=== PATIENT | female | born 1980 | race African-American/Black ===

== ENCOUNTER 2016-12-25 14:19 | Emergency (ER) | payer BC, MEDICAID ==
[~2016-12-25] VITALS: Ht 175.3 cm; Wt 117.9 kg
[~2016-12-25 14:19] MED LIST: PREN-129
[2016-12-25 14:47] VITALS: BP 111/74
[2016-12-25] MEDS ORDERED: cefTRIAXone SOD 1,000 MG VL IM ONE (15:30)
[2016-12-25] MEDS ORDERED: ACETAMINOPHEN 500 MG TAB PO ONE (15:30)
== END 2016-12-25 16:20 | disposition home or self-care (01) ==
LOC: ER 14:31
DX: O26.891 Other specified pregnancy related conditions, first trimester (principal); J01.90 Acute sinusitis, unspecified; J06.9 Acute upper respiratory infection, unspecified; O99.331 Smoking (tobacco) complicating pregnancy, first trimester; F17.210 Nicotine dependence, cigarettes, uncomplicated; Z90.49 Acquired absence of other specified parts of digestive tract; Z3A.09 9 weeks gestation of pregnancy
CPT/HCPCS: 96372; 99283; J0696

== ENCOUNTER → 2016-12-27 | Outpatient (CLI) | payer BC, MEDICAID ==
[2016-12-27 11:12] LABS: Basophils # (auto) 0 uL; Basophils % (auto) 0.4 % (0.0-2.0); Eosinophils # (auto) 0.2 uL; Eosinophils % (auto) 4.1 % (0.0-7.0); Hematocrit 41.2 % (36.0-46.0); Hemoglobin 13.2 g/dL (12.2-16.2); Lymphocytes # (auto) 1.5 uL; Lymphocytes % (auto) 25.3 % (10.0-50.0); Mean Corpuscular Hemoglobin 27.8 pg (28.0-32.0); Mean Corpuscular Hgb Conc. 32.1 g/dL (32.0-36.0); Mean Corpuscular Volume 86.8 fL (80.0-100.0); Mean Platelet Volume 7.7 fL (7.4-10.4); Monocytes # (auto) 0.4 uL; Monocytes % (auto) 7.2 % (0.0-12.0); Neutrophils # (auto) 3.7 uL; Platelet Count (auto) 384 10^3/uL (140-450); Red Cell Distribution Width 14.7 % (11.6-16.0); White Blood Cell 5.8 10^3/uL (4.4-10.8)
== END | disposition home or self-care (01) ==
LOC: LAB 10:15
PROVIDERS: ATTEND Specialist
DX: Z34.80 Encounter for supervision of other normal pregnancy, unspecified trimester (principal); Z31.81 Encounter for male factor infertility in female patient; Z13.0 Encounter for screening for diseases of the blood and blood-forming organs and certain disorders involving the immune mechanism
CPT/HCPCS: 36415; 82951; 83021; 83036; 85025; 85660; 86703; 86762; 86850; 86900; 86901; 87086; 87340

== ENCOUNTER 2016-12-29 05:01 | Emergency (ER) | payer BC, MEDICAID ==
[~2016-12-29] VITALS: Ht 175.3 cm; Wt 117.9 kg
[2016-12-29 06:11] LABS: Urine RBC None Seen /hpf (0 - 4)
[2016-12-29 06:20] LABS: Urine Bilirubin Negative (Negative); Urine Blood Negative /uL (Negative); Urine Color Yellow (Yellow); Urine Glucose Normal (Normal); Urine Ketone Negative (Negative); Urine Mucus FEW (None Seen); Urine Nitrite Negative (Negative); Urine Squamous Epithelial Cell FEW /hpf (<5); Urine Urobilinogen Normal (Negative); Urine pH 7.5 (5.0-8.0)
[2016-12-29 06:30] LABS: Basophils # (auto) 0 uL; Basophils % (auto) 0.6 % (0.0-2.0); Eosinophils # (auto) 0.3 uL; Eosinophils % (auto) 4.6 % (0.0-7.0); Hematocrit 36.7 % (36.0-46.0); Hemoglobin 12.1 g/dL (12.2-16.2); Lymphocytes # (auto) 1.8 uL; Lymphocytes % (auto) 25.6 % (10.0-50.0); Mean Corpuscular Hemoglobin 27.9 pg (28.0-32.0); Mean Corpuscular Hgb Conc. 32.9 g/dL (32.0-36.0); Mean Corpuscular Volume 84.7 fL (80.0-100.0); Mean Platelet Volume 7.5 fL (7.4-10.4); Monocytes # (auto) 0.5 uL; Monocytes % (auto) 6.7 % (0.0-12.0); Neutrophils # (auto) 4.4 uL; Neutrophils % (auto) 62.5 % (37.0-80.0); Platelet Count (auto) 355 10^3/uL (140-450); Red Cell Distribution Width 14.7 % (11.6-16.0); White Blood Cell 7.1 10^3/uL (4.4-10.8)
[2016-12-29 06:53] LABS: Albumin 3.1 g/dL (3.4-5.0); BUN/Creatinine Ratio 9.1; Calcium 8.1 mg/dL (8.5-10.1); Potassium 3.7 mmol/L (3.5-5.1)
[2016-12-29 06:55] LABS: Bilirubin, Total 0.5 mg/dL (0.2-1.0); Total Protein 7.1 g/dL (6.4-8.2)
[2016-12-29 09:05] VITALS: BP 113/50
== END 2016-12-29 10:48 | disposition home or self-care (01) ==
LOC: ER 05:10
DX: O25.11 Malnutrition in pregnancy, first trimester (principal); O99.331 Smoking (tobacco) complicating pregnancy, first trimester; R10.9 Unspecified abdominal pain; Z3A.09 9 weeks gestation of pregnancy
CPT/HCPCS: 36415; 76801; 80053; 81001; 82150; 83690; 84702; 85025

== ENCOUNTER 2017-03-27 00:20 | Observation (INO) | payer BC, MEDICAID | END 2017-03-27 01:40 | disposition home or self-care (01) | DRG 781 | LOC: LDRP 00:20 | PROVIDERS: ADMIT Obstetrics & Gynecology; ATTEND Obstetrics & Gynecology | DX: O26.892 Other specified pregnancy related conditions, second trimester (principal); R10.9 Unspecified abdominal pain; M54.9 Dorsalgia, unspecified; Z3A.22 22 weeks gestation of pregnancy | CPT/HCPCS: 59025; 81002; G0378 ==

== ENCOUNTER → 2017-05-09 | Outpatient (CLI) | payer BC, MEDICAID ==
[2017-05-09 08:44] LABS: Basophils # (auto) 0 uL; Basophils % (auto) 0.2 % (0.0-2.0); CONDITION Y; Eosinophils # (auto) 0.3 uL; Eosinophils % (auto) 3.6 % (0.0-7.0); Hematocrit 37.1 % (36.0-46.0); Hemoglobin 12.2 g/dL (12.2-16.2); Lymphocytes # (auto) 1.2 uL; Lymphocytes % (auto) 14.8 % (10.0-50.0); Mean Corpuscular Hemoglobin 28.4 pg (28.0-32.0); Mean Corpuscular Hgb Conc. 32.9 g/dL (32.0-36.0); Mean Corpuscular Volume 86.4 fL (80.0-100.0); Mean Platelet Volume 7.4 fL (7.4-10.4); Monocytes # (auto) 0.5 uL; Monocytes % (auto) 6.3 % (0.0-12.0); Neutrophils # (auto) 6.1 uL; Neutrophils % (auto) 75.1 % (37.0-80.0); Platelet Count (auto) 337 10^3/uL (140-450); Red Cell Distribution Width 14.8 % (11.6-16.0); White Blood Cell 8.2 10^3/uL (4.4-10.8)
== END | disposition home or self-care (01) ==
LOC: LAB 08:25
PROVIDERS: ATTEND Specialist
DX: Z34.80 Encounter for supervision of other normal pregnancy, unspecified trimester (principal); O99.810 Abnormal glucose complicating pregnancy
CPT/HCPCS: 36415; 82951; 85025

== ENCOUNTER 2017-05-12 15:15 | Observation (INO) | payer BC, MEDICAID ==
[2017-05-12 16:11] LABS: Urine RBC None Seen /hpf (0 - 4)
[2017-05-12 16:55] LABS: Urine Bilirubin Negative (Negative); Urine Blood Negative /uL (Negative); Urine Color Yellow (Yellow); Urine Glucose Normal (Normal); Urine Ketone Negative (Negative); Urine Mucus FEW (None Seen); Urine Nitrite Negative (Negative); Urine Squamous Epithelial Cell FEW /hpf (<5); Urine pH 6.5 (5.0-8.0)
== END 2017-05-12 17:35 | disposition home or self-care (01) | DRG 781 ==
LOC: LDRP 15:15
PROVIDERS: ADMIT Obstetrics & Gynecology; ATTEND Obstetrics & Gynecology
DX: O26.893 Other specified pregnancy related conditions, third trimester (principal); R10.30 Lower abdominal pain, unspecified; Z3A.29 29 weeks gestation of pregnancy; Z87.891 Personal history of nicotine dependence
CPT/HCPCS: 59025; 76817; 80307; 81001; 81002; G0378

== ENCOUNTER 2017-05-16 11:25 | Observation (INO) | payer BC, MEDICAID | END 2017-05-16 13:30 | disposition home or self-care (01) | DRG 781 | LOC: LDRP 11:25 | PROVIDERS: ADMIT Specialist; ATTEND Specialist | DX: O24.419 Gestational diabetes mellitus in pregnancy, unspecified control (principal); O26.893 Other specified pregnancy related conditions, third trimester; R10.30 Lower abdominal pain, unspecified; Z3A.29 29 weeks gestation of pregnancy | CPT/HCPCS: 59025; 76818; 81002; 82962; G0378 ==

== ENCOUNTER 2017-05-19 13:35 | Observation (INO) | payer BC, MEDICAID | END 2017-05-19 15:00 | disposition home or self-care (01) | DRG 781 | LOC: LDRP 13:35 | PROVIDERS: ADMIT Specialist; ATTEND Specialist | DX: O24.419 Gestational diabetes mellitus in pregnancy, unspecified control (principal); Z3A.30 30 weeks gestation of pregnancy | CPT/HCPCS: 59025; 76818; 81002; G0378 ==

== ENCOUNTER 2017-05-22 16:00 | Observation (INO) | payer BC, MEDICAID | END 2017-05-22 17:25 | disposition home or self-care (01) | DRG 781 | LOC: LDRP 16:00 | PROVIDERS: ADMIT Specialist; ATTEND Specialist | DX: O24.410 Gestational diabetes mellitus in pregnancy, diet controlled (principal); Z3A.30 30 weeks gestation of pregnancy; Z87.891 Personal history of nicotine dependence | CPT/HCPCS: 59025; 76818; 81002; 82962; G0378 ==

== ENCOUNTER 2017-05-26 11:45 | Observation (INO) | payer BC, MEDICAID | END 2017-05-26 13:22 | disposition home or self-care (01) | DRG 781 | LOC: LDRP 11:45 | PROVIDERS: ADMIT Specialist; ATTEND Specialist | DX: O24.419 Gestational diabetes mellitus in pregnancy, unspecified control (principal); Z3A.00 Weeks of gestation of pregnancy not specified | CPT/HCPCS: 59025; 76818; 81002; 82962; G0378 ==

== ENCOUNTER 2017-05-30 09:40 | Observation (INO) | payer BC, MEDICAID | END 2017-05-30 10:45 | disposition home or self-care (01) | DRG 781 | LOC: LDRP 09:40 | PROVIDERS: ADMIT Specialist; ATTEND Specialist | DX: O24.419 Gestational diabetes mellitus in pregnancy, unspecified control (principal); Z3A.31 31 weeks gestation of pregnancy | CPT/HCPCS: 59025; 81002; 82948; 82962; G0378 ==

== ENCOUNTER 2017-06-02 10:10 | Observation (INO) | payer BC, MEDICAID ==
[2017-06-02] MEDS ORDERED: PREN27TA7 OR (10:53)
== END 2017-06-02 11:30 | disposition home or self-care (01) | DRG 781 ==
LOC: LDRP 10:10
PROVIDERS: ADMIT Obstetrics & Gynecology; ATTEND Obstetrics & Gynecology
DX: O24.419 Gestational diabetes mellitus in pregnancy, unspecified control (principal); Z3A.32 32 weeks gestation of pregnancy
CPT/HCPCS: 59025; 76818; 81002; 82948; 82962; G0378

== ENCOUNTER 2017-06-09 14:10 | Observation (INO) | payer BC, MEDICAID ==
[~2017-06-09 14:10] MED LIST changes: +PREN27TA7 OR
== END 2017-06-09 15:38 | disposition home or self-care (01) | DRG 781 ==
LOC: LDRP 14:10
PROVIDERS: ADMIT Specialist; ATTEND Specialist
DX: O24.419 Gestational diabetes mellitus in pregnancy, unspecified control (principal); O26.893 Other specified pregnancy related conditions, third trimester; M54.9 Dorsalgia, unspecified; R10.9 Unspecified abdominal pain; O21.2 Late vomiting of pregnancy; Z3A.33 33 weeks gestation of pregnancy
CPT/HCPCS: 59025; 76818; 81002; 82948; 82962; G0378

== ENCOUNTER 2017-06-11 12:20 | Observation (INO) | payer BC, MEDICAID | END 2017-06-11 14:00 | disposition home or self-care (01) | DRG 778 | LOC: LDRP 12:20 | PROVIDERS: ADMIT Obstetrics & Gynecology; ATTEND Obstetrics & Gynecology | DX: O60.03 Preterm labor without delivery, third trimester (principal); Z3A.33 33 weeks gestation of pregnancy | CPT/HCPCS: 59025; 76818; 81002; 82948; 82962; G0378 ==

== ENCOUNTER 2017-06-14 14:25 | Observation (INO) | payer BC, MEDICAID | END 2017-06-14 15:52 | disposition home or self-care (01) | DRG 781 | LOC: LDRP 14:25 | PROVIDERS: ADMIT Obstetrics & Gynecology; ATTEND Obstetrics & Gynecology | DX: O24.419 Gestational diabetes mellitus in pregnancy, unspecified control (principal); Z3A.34 34 weeks gestation of pregnancy | CPT/HCPCS: 59025; 76818; 81002; 82962; G0378 ==

== ENCOUNTER 2017-06-17 19:26 | Observation (INO) | payer BC, MEDICAID | END 2017-06-17 20:31 | disposition home or self-care (01) | DRG 781 | LOC: LDRP 19:26 | PROVIDERS: ADMIT Specialist; ATTEND Specialist | DX: O24.419 Gestational diabetes mellitus in pregnancy, unspecified control (principal); Z3A.34 34 weeks gestation of pregnancy | CPT/HCPCS: 59025; 76818; 81002; 82962; G0378 ==

== ENCOUNTER 2017-06-21 10:25 | Observation (INO) | payer BC, MEDICAID | END 2017-06-21 12:00 | disposition left against medical advice (07) | DRG 781 | LOC: LDRP 10:25 | PROVIDERS: ADMIT Obstetrics & Gynecology; ATTEND Obstetrics & Gynecology | DX: O24.419 Gestational diabetes mellitus in pregnancy, unspecified control (principal); O26.893 Other specified pregnancy related conditions, third trimester; M54.9 Dorsalgia, unspecified; R10.9 Unspecified abdominal pain; Z3A.00 Weeks of gestation of pregnancy not specified | CPT/HCPCS: 59025; 76818; 81002; 82948; G0378 ==

== ENCOUNTER 2017-06-24 10:05 | Observation (INO) | payer BC, MEDICAID | END 2017-06-24 11:25 | disposition home or self-care (01) | DRG 781 | LOC: LDRP 10:05 | PROVIDERS: ADMIT Obstetrics & Gynecology; ATTEND Obstetrics & Gynecology | DX: O24.419 Gestational diabetes mellitus in pregnancy, unspecified control (principal); Z3A.35 35 weeks gestation of pregnancy | CPT/HCPCS: 59025; 76818; 81002; G0378 ==

== ENCOUNTER 2017-06-27 10:50 | Observation (INO) | payer BC, MEDICAID ==
[~2017-06-27] VITALS: Ht 175.3 cm; Wt 128.4 kg
[2017-06-27] MEDS ORDERED: SODIUM CHLORIDE 0.9% 1,000 ML IV ONE (11:45)
[2017-06-27] MEDS ORDERED: cefTRIAXone 1GM/50ML D5W 50 ML IV ONE (11:45)
[2017-06-27 13:35] LABS: Urine Bilirubin Negative (Negative); Urine Blood Negative /uL (Negative); Urine Color Yellow (Yellow); Urine Glucose Normal (Normal); Urine Ketone Negative (Negative); Urine Mucus FEW (None Seen); Urine Nitrite Negative (Negative); Urine RBC 1 /hpf (0 - 4); Urine Squamous Epithelial Cell MOD /hpf (<5); Urine Urobilinogen Normal (Negative); Urine pH 5.5 (5.0-8.0)
== END 2017-06-27 14:15 | disposition home or self-care (01) | DRG 998 ==
LOC: LDRP 10:50
PROVIDERS: ADMIT Specialist; ATTEND Specialist
DX: O23.40 Unspecified infection of urinary tract in pregnancy, unspecified trimester (principal); Z3A.00 Weeks of gestation of pregnancy not specified
CPT/HCPCS: 59025; 81001; 81002; 82962; 87086; 96361; 96365; G0378; J0696; J7030; 96366

== ENCOUNTER 2017-07-07 11:40 | Inpatient (IN) | payer BC, MEDICAID ==
[~2017-07-07] VITALS: Ht 1 cm; Wt 0.5 kg
[~2017-07-07 11:40] MED LIST changes: -PREN27TA7 OR
[2017-07-07] MEDS ORDERED: PREN-96 PO (12:25)
[2017-07-07 12:47] LABS: Basophils # (auto) 0.1 uL; Basophils % (auto) 0.7 % (0.0-2.0); CONDITION Y; Eosinophils # (auto) 0.2 uL; Eosinophils % (auto) 2.6 % (0.0-7.0); Hematocrit 41.1 % (36.0-46.0); Hemoglobin 13.6 g/dL (12.2-16.2); Lymphocytes # (auto) 1.2 uL; Lymphocytes % (auto) 14.6 % (10.0-50.0); Mean Corpuscular Hemoglobin 28.2 pg (28.0-32.0); Mean Corpuscular Hgb Conc. 33.1 g/dL (32.0-36.0); Mean Corpuscular Volume 85.1 fL (80.0-100.0); Mean Platelet Volume 8.3 fL (7.4-10.4); Monocytes # (auto) 0.6 uL; Monocytes % (auto) 6.7 % (0.0-12.0); Neutrophils # (auto) 6.3 uL; Neutrophils % (auto) 75.4 % (37.0-80.0); Platelet Count (auto) 319 10^3/uL (140-450); Red Cell Distribution Width 15.3 % (11.6-16.0); White Blood Cell 8.4 10^3/uL (4.4-10.8)
[2017-07-07] MEDS ORDERED: NIFEdipine 10 MG CAP ONE (13:52)
[2017-07-07] MEDS ORDERED: NIFEdipine 10 MG CAP PO ONE (14:00)
[2017-07-07 14:25] LABS: Albumin 2.8 g/dL (3.4-5.0); BUN/Creatinine Ratio 12.9; Bilirubin, Total 0.7 mg/dL (0.2-1.0); Calcium 9.1 mg/dL (8.5-10.1); Potassium 3.9 mmol/L (3.5-5.1); Total Protein 7.5 g/dL (6.4-8.2)
[2017-07-07] MEDS ORDERED: SUCCINYLCHOLINE CHLORIDE 20 MG/ML 10ML VIAL IV ONE (15:23)
[2017-07-07] MEDS ORDERED: fentaNYL CITRATE 100 MCG/2 ML VL ONE (15:25)
[2017-07-07] MEDS ORDERED: MIDAZOLAM HCL 1MG/1ML-2 ML VIAL ONE (15:25)
[2017-07-07 15:34] LABS: INR 0.94 (0.9-1.15); Partial Thromboplastin Time 29.8 sec (22.64-33.71); Prothrombin Time 10.2 sec (9.37-12.3)
[2017-07-07] MEDS ORDERED: DEXTROSE 50% SYRINGE 50 ML IV ONE (15:35)
[2017-07-07] MEDS ORDERED: TETRACAINE 1% INJ 2 ML VIAL IJ ONE (15:38)
[2017-07-07] MEDS ORDERED: ceFAZolin 1GM VL ONE (15:55)
[2017-07-07] MEDS ORDERED: PROPOFOL 10 MG/ML 20 ML IV ONE (16:01)
[2017-07-07] MEDS ORDERED: OXYTOCIN 10 UNIT/ML 10ML VIAL ONE (16:01)
[2017-07-07] MEDS ORDERED: KETOROLAC TROMETH 30 MG/ML 1ML VIAL ONE (16:23)
[2017-07-07] MEDS ORDERED: LABETALOL HCL 5 MG/ML 4ML SYRINGE IV PRN (16:45)
[2017-07-07] MEDS ORDERED: MIDAZOLAM HCL 1MG/1ML-2 ML VIAL IV PRN (16:45)
[2017-07-07] MEDS ORDERED: ONDANSETRON HCL 4 MG/2 ML VIAL IV ONE (16:45)
[2017-07-07] MEDS ORDERED: ACCU-CHEK COMFORT CURVE STRIP VI ONE (16:45)
[2017-07-07] MEDS ORDERED: MORPHINE SULF INJ 2 MG/ML SYRINGE 1ML IV PRN (16:45)
[2017-07-07] MEDS ORDERED: KETOROLAC TROMETH 30 MG/ML 1ML VIAL IV ONE (16:45)
[2017-07-07] MEDS ORDERED: ePHEDrine SULFATE 50 MG/ML AMP IV PRN (16:45)
[2017-07-07] MEDS ORDERED: HYDROmorphone HCL 2 MG/ML VL IV PRN ×2 (16:45→17:15)
[2017-07-07] MEDS ORDERED: LACTATED RINGER'S 1,000 ML IV SCH (17:01)
[2017-07-07] MEDS ORDERED: ONDANSETRON HCL 4 MG/2 ML VIAL IV PRN (17:15)
[2017-07-07 19:35] VITALS: BP 103/67
[2017-07-07] MEDS ORDERED: LACTATED RINGERS IV ONE (20:30)
[2017-07-07] MEDS ORDERED: DEXTROSE IV ONE (20:30)
[2017-07-07] MEDS ORDERED: LACT. RINGERS/OXYTOCIN 20UNITS 1,000 ML IV ONE (21:06)
[2017-07-07] MEDS: LACT. RINGERS/OXYTOCIN 20UNITS 1,000 ML IV SCH (21:19)
[2017-07-07 22:00] VITALS: BP 106/70
[2017-07-07] MEDS: ceFAZolin 1GM/50ML D5W 50 ML IV SCH (22:10)
[2017-07-07] MEDS: KETOROLAC TROMETH 30 MG/ML 1ML VIAL IV SCH (22:35)
[2017-07-07 23:00] VITALS: BP 110/67
[2017-07-07 23:41] VITALS: BP 120/74
[2017-07-08 03:00] VITALS: BP 111/73
[2017-07-08] MEDS: KETOROLAC TROMETH 30 MG/ML 1ML VIAL IV SCH (05:06)
[2017-07-08] MEDS: LACT. RINGERS/OXYTOCIN 20UNITS 1,000 ML IV SCH ×2 (05:32→12:00)
[2017-07-08] MEDS: ceFAZolin 1GM/50ML D5W 50 ML IV SCH ×2 (05:34→14:28)
[2017-07-08 06:57] LABS: Basophils # (auto) 0 uL; Basophils % (auto) 0.3 % (0.0-2.0); CONDITION Y; Eosinophils # (auto) 0.2 uL; Eosinophils % (auto) 2.6 % (0.0-7.0); Hematocrit 36.3 % (36.0-46.0); Hemoglobin 11.9 g/dL (12.2-16.2); Lymphocytes % (auto) 12.6 % (10.0-50.0); Mean Corpuscular Hemoglobin 27.7 pg (28.0-32.0); Mean Corpuscular Hgb Conc. 32.7 g/dL (32.0-36.0); Mean Corpuscular Volume 84.6 fL (80.0-100.0); Mean Platelet Volume 8.5 fL (7.4-10.4); Monocytes # (auto) 0.6 uL; Monocytes % (auto) 7.3 % (0.0-12.0); Neutrophils # (auto) 6.1 uL; Neutrophils % (auto) 77.2 % (37.0-80.0); Platelet Count (auto) 308 10^3/uL (140-450); White Blood Cell 7.9 10^3/uL (4.4-10.8)
[2017-07-08 07:24] LABS: Albumin 2.3 g/dL (3.4-5.0); BUN/Creatinine Ratio 9.6; Bilirubin, Total 0.7 mg/dL (0.2-1.0); Calcium 8.6 mg/dL (8.5-10.1); Potassium 3.9 mmol/L (3.5-5.1); Total Protein 6.1 g/dL (6.4-8.2)
[2017-07-08 08:00] VITALS: BP 117/41
[2017-07-08] MEDS ORDERED: HYDROcodone-ACET 5/325MG TAB ONE (10:24)
[2017-07-08] MEDS: HYDROcodone-ACET 5/325MG TAB PO PRN ×2 (10:30→20:15)
[2017-07-08] MEDS: DOCUSATE SOD 100 MG CAP PO SCH ×2 (11:40→22:00)
[2017-07-08 12:00] VITALS: BP 116/68
[2017-07-08] MEDS ORDERED: TETANUS-DIPTH-ACEL PERTUSSIS 0.5ML SYRG IM ONE (12:00)
[2017-07-08 16:00] VITALS: BP 118/70
[2017-07-08] MEDS: IBUPROFEN 800 MG TAB PO PRN (18:30)
[2017-07-08 20:00] VITALS: BP 120/77
[2017-07-08 23:42] VITALS: BP 102/68
[2017-07-09] MEDS: HYDROcodone-ACET 5/325MG TAB PO PRN ×4 (02:15→22:12)
[2017-07-09 03:37] VITALS: BP 115/73
[2017-07-09] MEDS: IBUPROFEN 800 MG TAB PO PRN (05:19)
[2017-07-09 07:40] VITALS: BP 127/77
[2017-07-09] MEDS: DOCUSATE SOD 100 MG CAP PO SCH ×2 (10:30→22:12)
[2017-07-09 12:07] VITALS: BP 121/66
[2017-07-09 16:10] VITALS: BP 97/63
[2017-07-09 20:00] VITALS: BP 115/68
[2017-07-10] VITALS: BP 125/70
[2017-07-10] MEDS: IBUPROFEN 800 MG TAB PO PRN (01:44)
[2017-07-10 03:59] VITALS: BP 120/60
[2017-07-10 08:10] VITALS: BP 116/69
== END 2017-07-10 13:05 | disposition home or self-care (01) | DRG 765 ==
LOC: LDRP 11:40 → OBSVTOIN 11:40 → LDRP 15:54
PROVIDERS: ADMIT Specialist; ATTEND Specialist
PROC: 10D00Z1 Extraction of Products of Conception, Low, Open Approach (ICD-10-PCS; principal; 2017-07-07 15:41)
DX: O34.211 Maternal care for low transverse scar from previous cesarean delivery (principal); K83.1 Obstruction of bile duct; O24.429 Gestational diabetes mellitus in childbirth, unspecified control; O26.62 Liver and biliary tract disorders in childbirth; O69.81X0 Labor and delivery complicated by cord around neck, without compression, not applicable or unspecified; Z37.0 Single live birth; Z83.3 Family history of diabetes mellitus; Z3A.37 37 weeks gestation of pregnancy; O09.523 Supervision of elderly multigravida, third trimester; Z90.49 Acquired absence of other specified parts of digestive tract; Z84.1 Family history of disorders of kidney and ureter
CPT/HCPCS: 36415; 51702; 59025; 76818; 80053; 81002; 82948; 82962; 85025; 85610; 85730; 86592; 86850; 86900; 86901; 90715; 94762; 96361; 96366; J0330; J0690; J1885; J2250; J2590; J2704

== ENCOUNTER → 2017-07-26 | Outpatient (CLI) | payer BC, MEDICAID ==
[~2017-07-26] MED LIST changes: +PREN-96 PO
[2017-07-26 11:05] LABS: Albumin 3.4 g/dL (3.4-5.0); BUN/Creatinine Ratio 9.8; Bilirubin, Total 0.5 mg/dL (0.2-1.0); Calcium 8.5 mg/dL (8.5-10.1); Potassium 3.9 mmol/L (3.5-5.1); Total Protein 7.6 g/dL (6.4-8.2)
== END | disposition home or self-care (01) ==
LOC: LAB 10:23
PROVIDERS: ATTEND Specialist
DX: Z39.2 Encounter for routine postpartum follow-up (principal); L29.9 Pruritus, unspecified
CPT/HCPCS: 36415; 80053

== ENCOUNTER 2021-03-03 13:07 | Emergency (ER) | payer BC, MEDICAID ==
[~2021-03-03] VITALS: Ht 175.3 cm; Wt 108.9 kg
[2021-03-03] MEDS ORDERED: ASPirin 81 mg TAB PO ONE (13:30)
[2021-03-03] MEDS ORDERED: NITROGLYCERIN 0.4 MG SL TAB SL ONE (13:30)
[2021-03-03 14:02] LABS: Basophils # (auto) 0.1 10 ^3/uL (0-0.2); Eosinophils # (auto) 0.3 10 ^3/uL (0-0.8); Eosinophils % (auto) 3.8 % (0.0-7.0); Hematocrit 40.9 % (36.0-46.0); Hemoglobin 13.5 g/dL (12.2-16.2); Lymphocytes # (auto) 1.8 10 ^3/uL (0.4-5.4); Lymphocytes % (auto) 24.4 % (10.0-50.0); Mean Corpuscular Hemoglobin 29.3 pg (28.0-32.0); Mean Corpuscular Volume 88.9 fL (80.0-100.0); Monocytes # (auto) 0.4 10 ^3/uL (0-1.3); Monocytes % (auto) 5.8 % (0.0-12.0); Neutrophils # (auto) 4.7 10 ^3/uL (1.6-8.6); Platelet Count (auto) 400 10^3/uL (140-450); Red Cell Distribution Width 13.8 % (11.8-14.3); White Blood Cell 7.2 10^3/uL (4.4-10.8)
[2021-03-03 14:18] LABS: Anion Gap 6 (5-15); Blood Urea Nitrogen 8 mg/dL (7-18); Calcium 8.8 mg/dL (8.5-10.1); Carbon Dioxide 27 mmol/L (21-32); Chloride 105 mmol/L (98-107); Potassium 3.8 mmol/L (3.5-5.1); Sodium 138 mmol/L (136-145)
[2021-03-03 14:21] LABS: Alanine Aminotransferase 17 U/L (13-56); Albumin 3.6 g/dL (3.4-5.0); BUN/Creatinine Ratio 10.7; GFR African American 111 mL/min; GFR Non-African American 91 mL/min; Glucose 86 mg/dL (74-106)
[2021-03-03 14:36] LABS: Alkaline Phosphatase 79 U/L (45-117); Aspartate Aminotransferase 12 U/L (15-37); Bilirubin, Total 0.4 mg/dL (0.2-1.0); Total Protein 7.8 g/dL (6.4-8.2)
[2021-03-03 16:48] VITALS: BP 123/83
== END 2021-03-03 16:48 | disposition home or self-care (01) ==
LOC: ER 13:07
DX: R07.2 Precordial pain (principal); F41.9 Anxiety disorder, unspecified; F43.9 Reaction to severe stress, unspecified; Z98.890 Other specified postprocedural states; Z90.49 Acquired absence of other specified parts of digestive tract
CPT/HCPCS: 36415; 80053; 84484; 85025; 93005

== ENCOUNTER 2021-09-06 16:53 | Emergency (ER) | payer BC, MEDICAID ==
[~2021-09-06] VITALS: Ht 175.3 cm; Wt 110.2 kg
[2021-09-06 18:43] LABS: Basophils # (auto) 0 10 ^3/uL (0-0.2); Basophils % (auto) 0.6 % (0.0-2.0); Eosinophils # (auto) 0.3 10 ^3/uL (0-0.8); Eosinophils % (auto) 3.7 % (0.0-7.0); Hematocrit 38.7 % (36.0-46.0); Hemoglobin 13.1 g/dL (12.2-16.2); Lymphocytes # (auto) 1.5 10 ^3/uL (0.4-5.4); Lymphocytes % (auto) 21.3 % (10.0-50.0); Mean Corpuscular Hgb Conc. 33.8 g/dL (32.0-36.0); Mean Corpuscular Volume 88.7 fL (80.0-100.0); Monocytes # (auto) 0.5 10 ^3/uL (0-1.3); Monocytes % (auto) 6.5 % (0.0-12.0); Neutrophils # (auto) 4.8 10 ^3/uL (1.6-8.6); Neutrophils % (auto) 67.9 % (37.0-80.0); Red Blood Cells 4.37 10^6/uL (4.0-5.20); Red Cell Distribution Width 13.3 % (11.8-14.3)
[2021-09-06 18:58] LABS: Albumin 3.3 g/dL (3.4-5.0); BUN/Creatinine Ratio 15.1; Calcium 8.2 mg/dL (8.5-10.1); Magnesium 2.1 mg/dL (1.6-2.6)
[2021-09-06 19:00] LABS: Bilirubin, Total 0.8 mg/dL (0.2-1.0); Total Protein 7.4 g/dL (6.4-8.2)
[2021-09-06 21:45] VITALS: BP 117/75
== END 2021-09-06 20:59 | disposition home or self-care (01) ==
LOC: ER 16:53
DX: R07.89 Other chest pain (principal); R51.9 Headache, unspecified; Z90.49 Acquired absence of other specified parts of digestive tract; Z98.51 Tubal ligation status; Z98.890 Other specified postprocedural states
CPT/HCPCS: 36415; 70450; 80053; 83735; 84484; 85025; 93005

== ENCOUNTER 2021-11-24 00:44 | Emergency (ER) | payer BC, MEDICAID ==
[~2021-11-24] VITALS: Ht 175.3 cm; Wt 104.3 kg
[2021-11-24 03:17] VITALS: BP 123/79
== END 2021-11-24 03:17 | disposition home or self-care (01) ==
LOC: ER 00:46
DX: S91.031A Puncture wound without foreign body, right ankle, initial encounter (principal); Z90.49 Acquired absence of other specified parts of digestive tract; W26.8XXA Contact with other sharp object(s), not elsewhere classified, initial encounter; Y93.89 Activity, other specified; Y92.89 Other specified places as the place of occurrence of the external cause; Y99.8 Other external cause status

== ENCOUNTER 2022-01-26 21:15 | Emergency (ER) | payer BC, MEDICAID ==
[~2022-01-26] VITALS: Ht 175.3 cm; Wt 120.7 kg
[2022-01-26 23:00] LABS: Basophils # (auto) 0.1 10 ^3/uL (0-0.2); Basophils % (auto) 1.2 % (0.0-2.0); Eosinophils # (auto) 0.3 10 ^3/uL (0-0.8); Eosinophils % (auto) 4.2 % (0.0-7.0); Hematocrit 39.5 % (36.0-46.0); Hemoglobin 13.2 g/dL (12.2-16.2); Lymphocytes # (auto) 1.8 10 ^3/uL (0.4-5.4); Lymphocytes % (auto) 24.1 % (10.0-50.0); Mean Corpuscular Hgb Conc. 33.4 g/dL (32.0-36.0); Mean Corpuscular Volume 86.8 fL (80.0-100.0); Monocytes # (auto) 0.6 10 ^3/uL (0-1.3); Monocytes % (auto) 8.3 % (0.0-12.0); Neutrophils # (auto) 4.7 10 ^3/uL (1.6-8.6); Neutrophils % (auto) 62.2 % (37.0-80.0); Nucleated Red Blood Cells % 0.1 %; Red Blood Cells 4.55 10^6/uL (4.0-5.20); Red Cell Distribution Width 13.6 % (11.8-14.3); White Blood Cell 7.5 10^3/uL (4.4-10.8)
[2022-01-26 23:25] LABS: Potassium 3.6 mmol/L (3.5-5.1)
[2022-01-26 23:29] LABS: Albumin 3.6 g/dL (3.4-5.0); BUN/Creatinine Ratio 13.6; Calcium 8.7 mg/dL (8.5-10.1)
[2022-01-26 23:35] LABS: Bilirubin, Total 0.6 mg/dL (0.2-1.0); Total Protein 7.6 g/dL (6.4-8.2)
[2022-01-27 02:31] VITALS: BP 122/77
== END 2022-01-27 03:02 | disposition home or self-care (01) ==
LOC: ER 21:18
DX: R07.89 Other chest pain (principal); Z98.51 Tubal ligation status
CPT/HCPCS: 36415; 71045; 80053; 84484; 85025; 93005

== ENCOUNTER 2023-09-08 17:56 | Emergency (ER) | payer BC, OTHER ==
[~2023-09-08] VITALS: Ht 175.3 cm; Wt 123.3 kg
[2023-09-08 18:18] VITALS: BP 140/77; PULSE 74; RESP 18; TEMP 98; O2SAT 98
[2023-09-08 19:14] LABS: Urine Bacteria FEW /hpf (None Seen); Urine Blood Negative /uL (Negative); Urine Clarity Clear (Clear); Urine Color Yellow (Yellow); Urine Mucus FEW (None Seen); Urine Protein, UAD 1+ (Negative); Urine Specific Gravity 1.034 (1.001-1.035); Urine Urobilinogen >12.0 mg/dL (Negative); Urine WBC 2 /hpf (0 - 5)
[2023-09-08] MEDS ORDERED: CYCL-611 PO (21:40)
[2023-09-08] MEDS ORDERED: IBUP1TAB5 PO (21:40)
[2023-09-08] MEDS ORDERED: HYDROcodone-ACET 5/325MG TAB PO ONE (21:45)
== END 2023-09-09 05:33 | disposition home or self-care (01) ==
LOC: ER 17:56
DX: S13.4XXA Sprain of ligaments of cervical spine, initial encounter (principal); S20.211A Contusion of right front wall of thorax, initial encounter; S23.3XXA Sprain of ligaments of thoracic spine, initial encounter; S23.9XXA Sprain of unspecified parts of thorax, initial encounter; S33.5XXA Sprain of ligaments of lumbar spine, initial encounter; Z90.49 Acquired absence of other specified parts of digestive tract; Z98.51 Tubal ligation status; V43.52XA Car driver injured in collision with other type car in traffic accident, initial encounter; Y93.89 Activity, other specified; Y92.410 Unspecified street and highway as the place of occurrence of the external cause; Y99.8 Other external cause status
CPT/HCPCS: 71111; 72040; 72070; 72100; 81001

== ENCOUNTER 2023-10-26 14:57 | Emergency (ER) | payer BC, OTHER, MEDICAID ==
[~2023-10-26] VITALS: Ht 175.3 cm; Wt 124.0 kg
[~2023-10-26 14:57] MED LIST changes: +CYCL-611 PO; +IBUP1TAB5 PO; -PREN-129; -PREN-96 PO
[2023-10-26 16:48] LABS: Basophils # (auto) 0 10 ^3/uL (0-0.2); Eosinophils # (auto) 0 10 ^3/uL (0-0.8); Eosinophils % (auto) 0.7 % (0.0-7.0); Hematocrit 40.7 % (36.0-46.0); Hemoglobin 13.3 g/dL (12.2-16.2); Lymphocytes # (auto) 0.9 10 ^3/uL (0.4-5.4); Lymphocytes % (auto) 20.4 % (10.0-50.0); Mean Corpuscular Hemoglobin 27.6 pg (28.0-32.0); Mean Corpuscular Hgb Conc. 32.7 g/dL (32.0-36.0); Mean Corpuscular Volume 84.2 fL (80.0-100.0); Monocytes # (auto) 0.6 10 ^3/uL (0-1.3); Monocytes % (auto) 12.9 % (0.0-12.0); Neutrophils # (auto) 2.9 10 ^3/uL (1.6-8.6); Nucleated Red Blood Cells % 0.1 %; Red Blood Cells 4.84 10^6/uL (4.0-5.20); Red Cell Distribution Width 14.8 % (11.8-14.3); White Blood Cell 4.4 10^3/uL (4.4-10.8)
[2023-10-26] MEDS ORDERED: KETOROLAC TROMETH 60MG/2ML VIAL IM ONE (17:00)
[2023-10-26] MEDS ORDERED: DICYCLOMINE HCL (10MG/ML) 2 ML AMPULE IM ONE ×2 (17:00→17:45)
[2023-10-26 17:04] LABS: Alanine Aminotransferase 15 U/L (7-40); Albumin 4.6 g/dL (3.2-4.8); Alkaline Phosphatase 88 U/L (46-116); Anion Gap 5 (5-15); Aspartate Aminotransferase 27 U/L (13-40); BUN/Creatinine Ratio 7.3 (10.0-20.0); Bilirubin, Total 1.4 mg/dL (0.2-1.0); Blood Urea Nitrogen 7 mg/dL (9-23); Calcium 9.1 mg/dL (8.7-10.4); Carbon Dioxide 30 mmol/L (20-30); Chloride 102 mmol/L (98-107); Glucose 85 mg/dL (74-106); Potassium 3.4 mmol/L (3.5-5.1); Sodium 137 mmol/L (136-145)
[2023-10-26] MEDS ORDERED: DICY10CA PO (17:04)
[2023-10-26] MEDS ORDERED: NAPR-1334 PO (17:04)
[2023-10-26 17:05] LABS: Total Protein 7.9 g/dL (5.7-8.2)
[2023-10-26] MEDS ORDERED: POTA10TA51 PO (17:35)
[2023-10-26] MEDS ORDERED: POTASSIUM EFFERVESENT TAB 25 MEQ PO ONE (17:45)
[2023-10-26 18:29] LABS: COVID19 ANTIGEN SOFIA FIA NEGATIVE (NEGATIVE)
[2023-10-26 18:56] LABS: Rapid Influenza A Positive (Negative); Rapid Influenza B Negative (Negative)
[2023-10-26] MEDS ORDERED: OSEL75CA5 PO (21:19)
[2023-10-26 22:24] VITALS: BP 118/62; PULSE 78; RESP 14; TEMP 98.6; O2SAT 99
== END 2023-10-26 22:24 | disposition home or self-care (01) ==
LOC: ER 14:57
DX: B34.9 Viral infection, unspecified (principal); R10.2 Pelvic and perineal pain; J20.9 Acute bronchitis, unspecified; R19.7 Diarrhea, unspecified; F41.9 Anxiety disorder, unspecified; Z20.822 Contact with and (suspected) exposure to COVID-19; Z98.890 Other specified postprocedural states; Z79.899 Other long term (current) drug therapy
CPT/HCPCS: 36415; 71046; 80053; 83690; 83735; 84484; 84702; 85025; 87426; 87804; 93005; 96372; 99285; J0500; J1885

== ENCOUNTER 2024-01-20 23:17 | Emergency (ER) | payer BC, MEDICAID ==
[~2024-01-20] VITALS: Ht 175.3 cm; Wt 131.4 kg
[~2024-01-20 23:17] MED LIST changes: -CYCL-611 PO; +DICY10CA PO; -IBUP1TAB5 PO; +NAPR-1334 PO; +OSEL75CA5 PO; +POTA10TA51 PO
[2024-01-21 00:03] LABS: Basophils # (auto) 0 10 ^3/uL (0-0.2); Basophils % (auto) 0.4 % (0.0-2.0); Eosinophils # (auto) 0.3 10 ^3/uL (0-0.8); Eosinophils % (auto) 4.2 % (0.0-7.0); Hematocrit 38.9 % (36.0-46.0); Hemoglobin 12.6 g/dL (12.2-16.2); Lymphocytes # (auto) 0.9 10 ^3/uL (0.4-5.4); Lymphocytes % (auto) 12.5 % (10.0-50.0); Mean Corpuscular Hemoglobin 27.3 pg (28.0-32.0); Mean Corpuscular Hgb Conc. 32.5 g/dL (32.0-36.0); Mean Corpuscular Volume 83.9 fL (80.0-100.0); Monocytes # (auto) 0.5 10 ^3/uL (0-1.3); Monocytes % (auto) 7.3 % (0.0-12.0); Neutrophils # (auto) 5.1 10 ^3/uL (1.6-8.6); Neutrophils % (auto) 75.6 % (37.0-80.0); Red Blood Cells 4.64 10^6/uL (4.0-5.20); Red Cell Distribution Width 14.5 % (11.8-14.3); White Blood Cell 6.8 10^3/uL (4.4-10.8)
[2024-01-21 00:16] LABS: Albumin 4.2 g/dL (3.2-4.8); Alkaline Phosphatase 86 U/L (46-116); Anion Gap 7 (5-15); Aspartate Aminotransferase 13 U/L (13-40); BUN/Creatinine Ratio 8.4 (10.0-20.0); Bilirubin, Total 1.1 mg/dL (0.2-1.0); Blood Urea Nitrogen 7 mg/dL (9-23); Calcium 8.9 mg/dL (8.7-10.4); Carbon Dioxide 26 mmol/L (20-30); Chloride 105 mmol/L (98-107); Glucose 91 mg/dL (74-106); Lipase 43 U/L (12-53); Potassium 3.5 mmol/L (3.5-5.1); Sodium 138 mmol/L (136-145); Total Protein 7.5 g/dL (5.7-8.2)
[2024-01-21 00:23] LABS: Alanine Aminotransferase < 9 U/L (7-40)
[2024-01-21 01:07] LABS: Urine Bacteria NONE SEEN /hpf (None Seen); Urine Blood 3+ /uL (Negative); Urine Clarity Clear (Clear); Urine Color Yellow (Yellow); Urine Mucus FEW (None Seen); Urine Protein, UAD TRACE (Negative); Urine Specific Gravity 1.026 (1.001-1.035); Urine Urobilinogen Normal (Negative); Urine WBC 2 /hpf (0 - 5)
[2024-01-21] MEDS: ONDANSETRON HCL 4 MG/2 ML VIAL IV ONE (01:35)
[2024-01-21] MEDS: SODIUM CHLORIDE 0.9% 1,000 ML IV ONE (01:35)
[2024-01-21] MEDS ORDERED: METR-344 PO (02:19)
[2024-01-21] MEDS ORDERED: AUG875T PO (02:19)
[2024-01-21] MEDS ORDERED: LOPE7.5C PO (02:19)
[2024-01-21] MEDS ORDERED: ZOFR4T PO (02:19)
[2024-01-21] MEDS: cefTRIAXone 1GM/50ML D5W 50 ML IV ONE (03:08)
[2024-01-21 03:24] VITALS: BP 119/72; PULSE 75; RESP 17; TEMP 98.7; O2SAT 97
[2024-01-21] MEDS: metroNIDAZOLE 500MG/100ML 100 ML IV ONE (03:35)
== END 2024-01-21 04:11 | disposition home or self-care (01) ==
LOC: ER 23:17
DX: R11.2 Nausea with vomiting, unspecified (principal); R19.7 Diarrhea, unspecified; F41.9 Anxiety disorder, unspecified; Z98.890 Other specified postprocedural states; Z79.899 Other long term (current) drug therapy
CPT/HCPCS: 36415; 74176; 80053; 81001; 81025; 83690; 85025; 96361; 96365; 96367; 96375; 99285; J0696; J2405; J3490; J7030

== ENCOUNTER → 2025-01-31 | Outpatient (CLI) | payer BC, MEDICAID ==
[~2025-01-31] MED LIST changes: +AUG875T PO; +LOPE7.5C PO; +METR-344 PO; -NAPR-1334 PO; +NAPR-1335 PO; +POTA-36 PO; -POTA10TA51 PO; +ZOFR4T PO
[2025-01-31 11:32] LABS: Basophils # (auto) 0.1 10 ^3/uL (0-0.2); Eosinophils # (auto) 0.3 10 ^3/uL (0-0.8); Eosinophils % (auto) 4.8 % (0.0-7.0); Hematocrit 39.1 % (36.0-46.0); Lymphocytes # (auto) 1.5 10 ^3/uL (0.4-5.4); Mean Corpuscular Hemoglobin 28.4 pg (28.0-32.0); Mean Corpuscular Hgb Conc. 33.3 g/dL (32.0-36.0); Mean Corpuscular Volume 85.3 fL (80.0-100.0); Monocytes # (auto) 0.4 10 ^3/uL (0-1.3); Monocytes % (auto) 6.5 % (0.0-12.0); Neutrophils # (auto) 3.7 10 ^3/uL (1.6-8.6); Neutrophils % (auto) 62.7 % (37.0-80.0); Platelet Count (auto) 376 10^3/uL (140-450); Red Blood Cells 4.58 10^6/uL (4.0-5.20); Red Cell Distribution Width 14.7 % (11.8-14.3); White Blood Cell 5.9 10^3/uL (4.4-10.8)
[2025-01-31 12:10] LABS: Albumin 4.5 g/dL (3.2-4.8); Alkaline Phosphatase 83 U/L (46-116); Anion Gap 8 (5-15); BUN/Creatinine Ratio 10.5 (10.0-20.0); Bilirubin, Total 0.8 mg/dL (0.2-1.0); Blood Urea Nitrogen 9 mg/dL (9-23); Calcium 9.2 mg/dL (8.7-10.4); Carbon Dioxide 27 mmol/L (20-31); Chloride 106 mmol/L (98-107); Cholesterol 154 mg/dL (< 200); Glucose 92 mg/dL (74-106); HDL Cholesterol 55 mg/dL (40-59); LDL Cholesterol 84 mg/dL (< 100); Potassium 4.1 mmol/L (3.5-5.1); Sodium 141 mmol/L (136-145); Total Protein 7.4 g/dL (5.7-8.2); Triglycerides 81 mg/dL (< 150)
[2025-01-31 12:12] LABS: Alanine Aminotransferase 9 U/L (7-40); Aspartate Aminotransferase 12 U/L (13-40)
[2025-02-04 11:08] LABS: Hepatitis B Core Total AB Negative (Negative)
[2025-02-04 11:34] LABS: Hepatitis A Total Antibody Positive (Negative); Hepatitis B Surface Antibody Positive (Negative); Hepatitis B Surface Antigen Negative (Negative); Hepatitis C Antibody Negative (Negative)
== END | disposition home or self-care (01) ==
LOC: LAB 11:00
PROVIDERS: ATTEND Licensed Practical Nurse
DX: Z13.6 Encounter for screening for cardiovascular disorders (principal); Z13.1 Encounter for screening for diabetes mellitus; Z11.3 Encounter for screening for infections with a predominantly sexual mode of transmission; Z12.11 Encounter for screening for malignant neoplasm of colon; Z13.220 Encounter for screening for lipoid disorders; Z13.29 Encounter for screening for other suspected endocrine disorder; E55.9 Vitamin D deficiency, unspecified
CPT/HCPCS: 36415; 80053; 80061; 82274; 82306; 83036; 84443; 85025; 86703; 86704; 86706; 86708; 86780; 86803; 87340

== ENCOUNTER 2025-10-18 11:16 | Emergency (ER) | payer BC, MEDICAID ==
[~2025-10-18] VITALS: Ht 175.3 cm; Wt 111.1 kg
[2025-10-18 11:40] VITALS: BP 119/96; PULSE 82; RESP 18; TEMP 97.2; O2SAT 95
[2025-10-18] MEDS ORDERED: PRED20TA2 PO (12:44)
[2025-10-18] MEDS ORDERED: TRAM-626 PO (12:44)
--- NOTE | 2025-10-18 12:44 | DVH ---
CLINICAL INDICATION: LOW BACK PAIN TO LEG TECHNIQUE: 3 radiographic views of the lumbar spine were obtained. COMPARISON: XY LUMBAR SPINE 3 VIEW on DOS: 10/10/25, XY LUMBAR SPINE 3 VIEW on DOS: 09/08/23 FINDINGS/IMPRESSION: There are no compressed vertebra. Bony alignment is normal.
[2025-10-18] MEDS: HYDROcodone-ACET 10/325MG TAB PO ONE (12:45)
--- NOTE | 2025-10-18 12:48 | ED.PDOC ---
Back pain HPI HPI Comments A 45 YEAR OLD FEMALE PRESENTS TO THE ED WITH COMPLAINT OF LOWER BACK PAIN THAT RADIATES DOWN LEFT LEG. PATIENT STATES SHE HAS BEEN EXPERIENCING LOWER BACK PAIN THAT RADIATES DOWN HER LEFT LEG FOR THE PAST 2 WEEKS. PATIENT REPORTS SHE CAME TO THIS ED FOR THIS COMPLAINT 1 WEEK AGO WHERE SHE WAS PRESCRIBED IBUPROFEN 800 MG AND A MUSCLE RELAXER, BUT NOTES THERE HAS BEEN NO IMPROVEMENT IN HER PAIN. PATIENT DENIES SADDLE ANESTHESIA, URINARY INCONTINENCE, BOWEL INCONTINENCE, DYSURIA, HEMATURIA, FLANK PAIN, FEVER, CHILLS, SHORTNESS OF BREATH, CHEST PAIN, ABDOMINAL PAIN, NAUSEA, VOMITING, HEADACHE, OR OTHER COMPLAINTS. NO OTHER SYMPTOMS OR MODIFYING FACTORS AT THIS TIME. PATIENT IS ALERT, ORIENTED X 4, AND HAS STEADY GAIT. Chief Complaint: Back Pain Time Seen by MD: 11:34 Primary Care Provider: Lety Reviewed Notes: Nurses Notes, Medications, Allergies Allergies: Uncoded Allergies: DIFLUCAN (Allergy, Unknown, 10/18/25) Home Meds Active Scripts Tramadol HCl (Tramadol HCl) 50 Mg Tab, 50 MG PO TID, #20 TAB Prov:KELLY HUMPHRIES 10/18/25 Prednisone (Prednisone) 20 Mg Tab, 40 MG PO DAILY, #20 TAB Prov:KELLY HUMPHRIES 10/18/25 Loperamide HCl (Imodium A-D) 2 Mg Cap, 2 MG PO Q6HP PRN, #20 CAP Prov:TOSHA BAEZA MD 01/21/24 Ondansetron Odt 4MG Tab (ZOFRAN PO) 4 Mg Tb, 4 MG PO TID PRN, #15 TAB ODT TAB-DISSOLVE IN MOUTH, THEN SWALLOW Prov:TOSHA BAEZA MD 01/21/24 Metronidazole (Flagyl) 500 Mg Tab, 1 TAB PO TID for 10 Days, #30 TAB Prov:TOSHA BAEZA MD 01/21/24 Amoxicillin & Pot Clavulanate (AUGMENTIN TABLET) 875 Mg Tb, 875 MG PO BID for 10 Days, #20 TAB Prov:TOSHA BAEZA MD 01/21/24 Oseltamivir Phosphate (Tamiflu) 75 Mg Cap, 1 CAP PO BID for 5 Days, #10 CAP Prov:PRINCE CRONIN MD 10/26/23 Potassium Chloride (POTASSIUM CHLORIDE CR) 10 Meq Tb, 1 TAB PO DAILY for 7 Days, #7 TAB 5 Refills Prov:PRINCE CRONIN MD 10/26/23 Naproxen Sodium (Naproxen) 220 Mg Tab, 220 MG PO BID for 7 Days, #14 TAB Prov:PRINCE CRONIN MD 10/26/23 Dicyclomine Hcl (BENTYL CAPSULE) 10 Mg Cp, 1 CAP PO TID for 4 Days, #12 CAP 11 Refills Prov:PRINCE CRONIN MD 10/26/23 Information Source: Patient Mode of Arrival: Ambulatory Timing: Weeks Duration: Since onset Location of Back pain: (B) Lumbar Radiates to: Anterior: (L) Buttocks, (L) Calf, (L) Thigh Radiates to: Posterior: (L) Buttocks, (L) Calf, (L) Thigh Radiates to: Medial: (L) Buttocks, (L) Calf, (L) Thigh Radiates to: Lateral: (L) Buttocks, (L) Calf, (L) Thigh Severity: Moderate Prehospital treatment: None Quality: Aching, Cramping Onset: Spontaneous History of: None Modifying Factors: Movement Associated signs and symptoms: None Past Medical History PAST MEDICAL HISTORY: Anxiety Surgical History: Cholecystectomy, , Tubal Ligation CORONARY CARE UNIT NURSE History: No Pertinent CORONARY CARE UNIT NURSE History Family History Family History: Reviewed,noncontributory to illness, Family hx of DM Social History Smoker: Non-Smoker Alcohol: Denies ETOH Use Drugs: Denies Drug Use Lives In: Home Constitutional: denies: chills, diaphoresis, fatigue, fever, malaise, sweats, weakness, others EENTM: denies: blurred vision, double vision, ear bleeding, ear discharge, ear drainage, ear pain, ear ringing, eye pain, eye redness, hearing loss, mouth pain, mouth swelling, nasal discharge, nose bleeding, nose congestion, nose pain, photophobia, tearing, throat pain, throat swelling, voice changes, others Respiratory: denies: cough, hemoptysis, orthopnea, SOB at rest, shortness of breath, SOB with excertion, stridor, wheezing, others Cardiovascular: denies: chest pain, dizzy spells, diaphoresis, Dyspnea on exertion, edema, irregular heart beat, left arm pain, lightheadedness, palpitations, PND, syncope, others Gastrointestinal: denies: abdomen distended, abdominal pain, blood streaked bowels, constipated, diarrhea, dysphagia, difficulty swallowing, hematemesis, melena, nausea, poor appetite, poor fluid intake, rectal bleeding, rectal pain, vomiting, others Genitourinary: denies: abnormal vagina bleeding, burning, dyspareunia, dysuria, flank pain, frequency, hematuria, incontinence, pain, , vagina discharge, urgency, others Neurological: denies: dizziness, fainting, headache, left sided numbness, left sided weakness, numbness, paresthesia, pre-existing deficit, right sided nu mbness, right sided weakness, seizure, speech problems, tingling, tremors, weakness, others Musculoskeletal: reports: back pain (LOWER BACK PAIN THAT RADIATES DOWN LEFT LEG), muscle pain; denies: gout, joint pain, joint swelling, muscle stiffness, neck pain, others Integumetry: denies: bruises, change in color, change in hair/nails, dryness, laceration, lesions, lumps, rash, wounds, others Allergic/Immunocompromised: denies: Difficulty Healing, Frequent Infections, Hives, Itching, others Hematologic/Lymphatic: denies: anemia, blood clots, easy bleeding, easy bruising, swollen glands, others Endocrine: denies: excessive hunger, excessive sweating, excessive thirst, excessive urination, flushing, intolerance to cold, intolerance to heat, unexplained weight gain, unexplained weight loss, others Psychiatric: denies: anxiety, bipolar disorder, depression, hopeless, panic disorder, schizophrenia, sleepless, suicidal, others All Other Systems: Reviewed and Negative Physical Exam General Appearance: No Apparent Distress, Obese HEENT: Normal ENT Inspection, PERRL/EOMI, Pharynx Normal, TMs Normal Neck: Full Range of Motion, Non-Tender, Normal, Normal Inspection Respiratory: Chest Non-Tender, Lungs Clear, No Accessory Muscle Use, No Respiratory Distress, Normal Breath Sounds Cardiovascular: No Edema, No JVD, No Murmur, No Gallop, Normal Peripheral Pulses, Regular Rate/Rhythm Breast Exam: Deferred Gastrointestinal: No Organomegaly, Non Tender, No Pulsatile Mass, Normal Bowel Sounds, Soft Genitalia: Deferred Pelvic: Deferred Rectal: Deferred Extremities: No calf tenderness, Normal capillary refill, Normal inspection, Normal range of motion, Non-tender, No pedal edema Musculoskeletal : Location: Bilateral Extremity Location: Back Apperance: Tenderness: Moderate (TENDERNESS AND MUSCLE SPASM ON LOWER BACK, NO BONY TENDERNESS, SWELLING AND DEFORMITY. ) Neurologic: Alert, metal hardener II-XII nml as Tested, No Motor Deficits, Normal Affect, Normal Mood, No Sensory Deficits Cerebellar Function: Normal Reflexes: Normal Skin: Dry, Normal Color, Warm Peripheral Pulses: 2+ carotid (R), 2+ carotid (L) Lymphatic: No Adenopathy Was a procedure done? Was a procedure done?: No Back Pain Differential Dx Differential Diagnosis: DJD, Musculoskeletal Pain, Strain X-Ray, Labs, Meds, VS Vital Signs Date Time Temp Pulse Resp B/P (MAP) Pulse Ox O2 Delivery O2 Flow Rate FiO2 10/18/25 11:40 82 18 95 Room Air 10/18/25 11:40 97.2 82 18 119/96 (104) 95 97.2 10/18/25 11:17 97.2 82 18 119/96 95 97.2 Current Medications Medications (Trade) Dose Ordered Sig/Andriy Route Start Time Stop Time Status Last Admin Acetaminophen/ Hydrocodone Bitart ([place] 10/325MG Tab) 1 tab ONCE ONCE PO 10/18/25 12:45 10/18/25 12:46 DC 10/18/25 12:45 PATIENT: JENNA CARMONAT: [id number]: [id number] : 1980 LOC: ER ROOM / BED: / AGE / SEX: 45 / F ADM STATUS: [facility] ER SERVICE [id number] ORDERING PHYSICIAN: KELLY HUMPHRIES PROCEDURE(s): LUMB2 - LUMBAR SPINE 3 VIEW REASON: LOW BACK PAIN TO LEG ORDER NUMBER(s): [id number], ACCESSION NUMBER(s): [id number] CLINICAL INDICATION: LOW BACK PAIN TO LEG TECHNIQUE: 3 radiographic views of the lumbar spine were obtained. COMPARISON: XY LUMBAR SPINE 3 VIEW on DOS: 10/10/25, XY LUMBAR SPINE 3 VIEW on DOS: 09/08/23 FINDINGS/IMPRESSION: There are no compressed vertebra. Bony alignment is normal. ATED BY: SALLY MCELROY Jr. DO DICTATED DATE/TIME: 10/18/251241 SIGNED BY: SALLY MCELROY Jr., DO SIGNED DATE/TIME: 10/18/251241 CC: X-Ray, Labs, Meds, VS Comment EXTERNAL MEDICAL RECORDS REVIEWED: [NONE] INDEPENDENT HISTORIANS: [NONE] SOCIAL DETERMINANTS OF HEALTH: [NONE] LABS ORDERED: NONE REVIEWED AND INTERPRETED RESULTS: NONE IMAGING ORDERED: XR L-SPINE: [INTERPRETED BY ME. NO ACUTE FINDINGS. NO FRACTURES OR DISLOCATION. PENDING RADIOLOGIST REPORT.] TREATMENTS ORDERED: [place] 10/325 MG P.O. PROCEDURES PERFORMED: NONE CRITICAL CARE TIME: NONE I HAVE DISCUSSED THE PATIENT WITH THE ATTENDING PHYSICIAN DR. COLON AND HE AGREES WITH THE PATIENT'S PLAN OF CARE AND DISPOSITION. BASED ON HISTORY OF PRESENT ILLNESS, AND PHYSICAL EXAM, PATIENT WILL BE DISCHARGED HOME. DISCUSSED PLAN FOR DISCHARGE HOME WITH RX [ULTRAM AND PREDNISONE]. MEDICATION WARNINGS GIVEN. SHARED DECISION MAKING: PATIENT INSTRUCTED TO FOLLOW UP WITH PRIMARY CARE PROVIDER IN 1-2 DAYS FOR RE-EVALUATION OF SYMPTOMS. PATIENT VERBALIZES UNDERSTANDING TO RETURN TO ED FOR NEW OR WORSENING SYMPTOMS OR IF FOLLOW UP WITH PCP CANNOT BE OBTAINED. PATIENT FEELS COMFORTABLE GOING HOME AT THIS TIME. ALL QUESTIONS ADDRESSED AT TIME OF DISCHARGE. Images Reviewed?: Images reviewed and evaluated by me Time of 1ST Reevaluation: 12:53 Reevaluation 1ST: Improved Patient Education/Counseling: Diagnosis, Treatment, Need For Follow Up Family Education/Counseling: Diagnosis, Treatment, Need For Follow Up Medical Screening: No EMC Exist At This Time SEPSIS Sepsis Screen Date sepsis recognized/suspect: Oct 18, 2025 Time Sepsis recognized/suspect: 1118 Recent Procedure: No On Antibiotic Therapy: No Respiratory Rate >20: No Heart Rate >90: No Temp<36 C (96.8 F) or >38.3 C: No SBP <90 or MAP <65 mmHG: No New Acute Mental Status Change: No Is the patient on CPAP, BIPAP,: No Physician Orders Lumbar Spine 3 View (10/18/25 11:56) Vital Signs Date Time Temp Pulse Resp B/P (MAP) Pulse Ox O2 Delivery O2 Flow Rate FiO2 10/18/25 11:40 82 18 95 Room Air 10/18/25 11:40 97.2 82 18 119/96 (104) 95 97.2 10/18/25 11:17 97.2 82 18 119/96 95 97.2 Medications Medications Dose Ordered Sig/Andriy Route Start Time Stop Time Status Last Admin Dose Admin Acetaminophen/ Hydrocodone Bitart 1 tab ONCE ONCE PO 10/18/25 12:45 10/18/25 12:46 DC 10/18/25 12:45 Departure 1 Departure Time of Disposition: 12:54 Impression: Primary Impression: Low back pain with left-sided sciatica Qualified Codes: M54.42 - Lumbago with sciatica, left side Disposition: HOME / SELF CARE / HOMELESS Condition: Stable Additional Instructions: FOLLOW-UP WITH PCP IN 1 TO 2 DAYS. TAKE MEDICATIONS PRESCRIBED. RETURN TO ED FOR ANY NEW OR WORSENING SYMPTOMS. e-Prescriptions Tramadol HCl (Tramadol HCl) 50 Mg Tab 50 MG PO TID, #20 TAB Prov: KELLY HUMPHRIES 10/18/25 Prednisone (Prednisone) 20 Mg Tab 40 MG PO DAILY, #20 TAB Prov: KELLY HUMPHRIES 10/18/25 Discharged With: Self Critical Care Note Critical Care Time?: No Stability Stability form required: No I personally scribed for KELLY HUMPHRIES ([email or web address]) on 10/18/25 at 12:48. Electronically submitted by Paul Figueroa ([email or web address]). KELLY HUMPHRIES Oct 18, 2025 12:48
== END 2025-10-18 12:50 | disposition home or self-care (01) ==
LOC: ER 11:16
DX: M54.42 Lumbago with sciatica, left side (principal); Z88.3 Allergy status to other anti-infective agents; Z90.49 Acquired absence of other specified parts of digestive tract; Z98.51 Tubal ligation status
CPT/HCPCS: 72100

== ENCOUNTER 2025-10-18 17:59 | Emergency (ER) | payer BC, MEDICAID ==
[~2025-10-18] VITALS: Ht 175.3 cm; Wt 111.0 kg
[~2025-10-18 17:59] MED LIST changes: +PRED20TA2 PO; +TRAM-626 PO
--- NOTE | 2025-10-18 18:54 | DVH ---
EXAM: CT LS SPINE WO CONTRAST INDICATION: low back pain shooting down leg TECHNIQUE:: Axial images of the lumbar spine have been obtained along with coronal and sagittal reformatted images. CT scans at this facility use dose modulation, iterative reconstruction, and/or weight based dosing when appropriate to reduce radiation dose to as low as reasonably achievable. COMPARISON: XY LUMBAR SPINE 3 VIEW on DOS: 10/18/25, XY LUMBAR SPINE 3 VIEW on DOS: 10/10/25, XY LUMBAR SPINE 3 VIEW on DOS: 09/08/23, LUMBAR SPINE COMP on DOS: 11/05/20 FINDINGS: There is no acute displaced fracture. Intervertebral disc heights are maintained. The paraspinal soft tissues are unremarkable. LEVEL BY LEVEL DISCUSSION BELOW: T12-L1: Unremarkable. L1-L2: Unremarkable. L2-L3: Unremarkable. L3-L4: Unremarkable. L4-L5: A mild broad-based disc protrusion effaces the thecal sac. There is no significant spinal canal or neural foraminal stenosis. L5-S1: A right foraminal disc protrusion effaces the thecal sac and narrows the right lateral recess. There is mild right neural foraminal stenosis. IMPRESSION: 1. No acute displaced fracture. 2. Right foraminal disc protrusion at L5-S1 may compress the underlying nerve root. Consider MRI in further assessment as clinically indicated.
[2025-10-18] MEDS: HYDROcodone-ACET 10/325MG TAB PO ONE (21:40)
[2025-10-18 21:41] VITALS: BP 142/94; PULSE 78; RESP 18; TEMP 98.6; O2SAT 100
[2025-10-18] MEDS: KETOROLAC TROMETH 60MG/2ML VIAL IM ONE (21:41)
--- NOTE | 2025-10-18 22:23 | ED.PDOC ---
Back pain HPI HPI Comments PT PRESENTED TO ED FOR SHARP, CONSTANT GLUTEAL PAIN RADIATING TO LEFT LOWER EXTREMITY. PT WAS SEEN HERE AT THIS FACILITY FOR [facility]AT[facility] PA[facility], GIVEN TX, W/ RELIEF BUT S/S WORSENED X2 HOURS AGO. DENIES NUMBNESS, WEAKNESS, LOSS OF BOWEL BLADDER CONTROL, OR SADDLE ANESTHESIA REPORTS NO KNOWN INJURY. Chief Complaint: Lower Extremity Time Seen by : 18:08 Primary Care Provider: Lety Reviewed Notes: Nurses Notes, Medications, Allergies Allergies: Uncoded Allergies: DIFLUCAN (Allergy, Unknown, 10/18/25) Home Meds Active Scripts Tramadol HCl (Tramadol HCl) 50 Mg Tab, 50 MG PO TID, #20 TAB Prov:KELLY HUMPHRIES 10/18/25 Prednisone (Prednisone) 20 Mg Tab, 40 MG PO DAILY, #20 TAB Prov:KELLY HUMPHRIES 10/18/25 Loperamide HCl (Imodium A-D) 2 Mg Cap, 2 MG PO Q6HP PRN, #20 CAP Prov:TOSHA BAEZA MD 01/21/24 Ondansetron Odt 4MG Tab (ZOFRAN PO) 4 Mg Tb, 4 MG PO TID PRN, #15 TAB ODT TAB-DISSOLVE IN MOUTH, THEN SWALLOW Prov:TOSHA BAEZA MD 01/21/24 Metronidazole (Flagyl) 500 Mg Tab, 1 TAB PO TID for 10 Days, #30 TAB Prov:TOSHA BAZEA MD 01/21/24 Amoxicillin & Pot Clavulanate (AUGMENTIN TABLET) 875 Mg Tb, 875 MG PO BID for 10 Days, #20 TAB Prov:TOSHA BAEZA MD 01/21/24 Oseltamivir Phosphate (Tamiflu) 75 Mg Cap, 1 CAP PO BID for 5 Days, #10 CAP Prov:PRINCE CRONIN MD 10/26/23 Potassium Chloride (POTASSIUM CHLORIDE CR) 10 Meq Tb, 1 TAB PO DAILY for 7 Days, #7 TAB 5 Refills Prov:PRINCE CRONIN MD 10/26/23 Naproxen Sodium (Naproxen) 220 Mg Tab, 220 MG PO BID for 7 Days, #14 TAB Prov:PRINCE CRONIN MD 10/26/23 Dicyclomine Hcl (BENTYL CAPSULE) 10 Mg Cp, 1 CAP PO TID for 4 Days, #12 CAP 11 Refills Prov:PRINCE CRONIN MD 10/26/23 Information Source: Patient Mode of Arrival: Ambulatory Past Medical History PAST MEDICAL HISTORY: Anxiety Surgical History: Cholecystectomy, , Tubal Ligation ALMOND HULLER History: No Pertinent ALMOND HULLER History Family History Family History: Reviewed,noncontributory to illness, Family hx of DM Social History Smoker: Non-Smoker Alcohol: Denies ETOH Use Drugs: Denies Drug Use Lives In: Home All Other Systems: Reviewed and Negative (See HPI) Physical Exam General Appearance: No Apparent Distress, Normal HEENT: Pharynx Normal Neck: Full Range of Motion, Non-Tender Respiratory: Lungs Clear, No Respiratory Distress, Normal Breath Sounds Cardiovascular: No Murmur, Normal Peripheral Pulses, Regular Rate/Rhythm Breast Exam: Deferred Gastrointestinal: Non Tender, Soft Genitalia: Deferred Pelvic: Deferred Rectal: Deferred Extremities: Normal capillary refill, Normal range of motion, No pedal edema Musculoskeletal : Location: Left Extremity Location: Back (Moderate tenderness palpated over LEFT lower back musculature. No noted crepitus or step-offs along cervical thoracic and lumbar spine. Strength sensory and motion intact. POSITIVE straight leg raise LEFT, NEGATIVE RIGHT SIDE. Positive pedal pulses) Apperance: Normal Neurologic: Alert, No Motor Deficits, Normal Affect, Normal Mood, No Sensory Deficits Cerebellar Function: Normal Reflexes: Normal Skin: Dry, Normal Color, Warm Lymphatic: No Adenopathy Was a procedure done? Was a procedure done?: No Back Pain Differential Dx Differential Diagnosis: Fracture, Musculoskeletal Pain, Strain X-Ray, Labs, Meds, VS Vital Signs Date Time Temp Pulse Resp B/P (MAP) Pulse Ox O2 Delivery O2 Flow Rate FiO2 10/18/25 21:41 78 18 100 Room Air 10/18/25 21:41 98.6 78 18 142/94 (110) 100 98.6 10/18/25 18:00 97.8 80 16 159/90 100 97.8 X-Ray, Labs, Meds, VS Comment IMPRESSION: 1. No acute displaced fracture. 2. Right foraminal disc protrusion at L5-S1 may compress the underlying nerve root. Consider MRI in further assessment as clinically indicated. Imaging reviewed shows no acute fractures subluxations or osseous lesions. Patient reports moderate improvement in his pain with ER treatment plan given, patient requesting discharge at this time. Patient ambulating with steady gait. Advised on ice and heat. Follow up with your PCP in 2-3 days this provider recommends further imaging such as outpatient MRI, pain management, consider referral to physical therapy. ER return precautions given patient indicates understanding and agrees with discharge plan of care. Images Reviewed?: Images reviewed and evaluated by me Time of 1ST Reevaluation: 18:08 Reevaluation 1ST: Unchanged Time of 2ND Reevaluation: 22:32 Reevaluation 2ND: Improved Patient Education/Counseling: Diagnosis, Treatment, Need For Follow Up Family Education/Counseling: No Family Present SEPSIS Sepsis Screen Date sepsis recognized/suspect: Oct 18, 2025 Time Sepsis recognized/suspect: 180 Recent Procedure: No On Antibiotic Therapy: No Respiratory Rate >20: No Heart Rate >90: No Temp<36 C (96.8 F) or >38.3 C: No SBP <90 or MAP <65 mmHG: No New Acute Mental Status Change: No Is the patient on CPAP, BIPAP,: No Physician Orders Ls Spine Wo Contrast (10/18/25 18:08) Vital Signs Date Time Temp Pulse Resp B/P (MAP) Pulse Ox O2 Delivery O2 Flow Rate FiO2 10/18/25 21:41 78 18 100 Room Air 10/18/25 21:41 98.6 78 18 142/94 (110) 100 98.6 10/18/25 18:00 97.8 80 16 159/90 100 97.8 Departure 1 Departure Time of Disposition: 22:32 Impression: Primary Impression: Low back pain with left-sided sciatica Qualified Codes: M54.42 - Lumbago with sciatica, left side Disposition: 01 HOME / SELF CARE / HOMELESS Condition: Stable Discharged With: Self Critical Care Note Critical Care Time?: No Stability Stability form required: LOWELL Canales Oct 18, 2025 22:22
== END 2025-10-18 22:51 | disposition home or self-care (01) ==
LOC: ER 17:59
DX: M54.42 Lumbago with sciatica, left side (principal); F41.9 Anxiety disorder, unspecified; Z79.899 Other long term (current) drug therapy; Z98.51 Tubal ligation status; Z90.49 Acquired absence of other specified parts of digestive tract; Z88.3 Allergy status to other anti-infective agents; Z79.52 Long term (current) use of systemic steroids
CPT/HCPCS: 72131; 96372; 99285; J1100; J1885